=== PATIENT | female | born 1955 | race Asian ===

== ENCOUNTER 2024-03-07 07:25 | Day surgery (SDC) | payer MEDICARE, BC ==
[~2024-03-07 07:25] MED LIST: ATOR10TA69 PO; FAMO20 PO; FLUT1BLS3 IH; HYDR12.54 PO; LOSA-382 PO; QUET100T34 PO; SODIUM CHLORIDE 0.9% 1,000 ML ONE; VILA20TA2 PO
[2024-03-07] MEDS: SODIUM CHLORIDE 0.9% 1,000 ML IV ONE (08:55)
[2024-03-07] MEDS ORDERED: OXYGEN THERAPY IH SCH (20:00)
== END 2024-03-07 11:45 | disposition home or self-care (01) ==
LOC: SURGERY 07:25
PROVIDERS: ATTEND Specialist
DX: R19.4 Change in bowel habit (principal); D12.4 Benign neoplasm of descending colon; I10 Essential (primary) hypertension; E03.9 Hypothyroidism, unspecified; E78.5 Hyperlipidemia, unspecified; J45.909 Unspecified asthma, uncomplicated; E66.9 Obesity, unspecified; K21.9 Gastro-esophageal reflux disease without esophagitis; M79.7 Fibromyalgia; Z68.35 Body mass index [BMI] 35.0-35.9, adult; Z80.0 Family history of malignant neoplasm of digestive organs
CPT/HCPCS: 45385; 45380; 88305; J7030